=== PATIENT | male | born 1995 | race Caucasian/White ===

== ENCOUNTER → 2018-07-05 | Outpatient (CLI) | payer BC ==
--- NOTE | 2018-07-05 16:05 | ECHO ---
[email or web address] [address] [address] Main: [phone] Fax: Transthoracic Echocardiogram Name: AUGUST RUELAS MR#: [id number] Study Date: 07/05/2018 Study Time: 02:02 PM Date of : 1995 Age: 23 year(s) Height: 177.8 cm (70 in.) Weight: 77.11 kg (170 lb.) BSA: 1.95 m2 Gender: Male Examination: Echo Indication: Surgery clearance, DCCV, Atrial Fibrillation Image Quality: Contrast: Requested by: Vinh Pitts BP: / Heart Rate: Rhythm: Indication: Surgery clearance, DCCV, Atrial Fibrillation Procedure Staff Event Coordinator: Ly Fairchild [facility] Reading Physician: Jerome Champagne MD Requesting Provider: Conclusions: Normal size left ventricle. No LV hypertrophy. Normal global systolic LV function. The ejection fraction is estimated to be 65 %. Mildly dilated right ventricle. The mitral valve leaflets appear redundant. Trivial to mild mitral regurgitation. The aortic valve is normal in appearance and function. The pulmonary artery pressure is normal. No old studies for comparison. Measurements: Chambers Valvular Assessment AV/MV Valvular Assessment TV/PV Normal Normal Normal Name Value Range Name Value Range Name Value Range Ao Ora (MM): 3.3 cm (2.2 cm-3.7 AV Vmax: 1.47 m/s (1 m/s-1.7 TR Vmax: 2.55 mm/s ( - ) cm) m/s) TR PGmax: 26 mmHg ( - ) IVSd (2D): 0.7 cm (0.6 cm-1.1 AV meanP mmHg ( - ) syst. PAP: 31 mmHg ( - ) cm) MV E Vmax: 0.77 m/s ( - ) LVDd (2D): 5.0 cm (4.2 cm-5.9 MV A Vmax: 0.44 m/s ( - ) cm) MV E/A: 1.75 ( - ) LVDs (2D): 3.1 cm (2.1 cm-4 cm) LVPWd (2D): 1.0 cm (0.6 cm-1 cm) LVEF (BP): 72 % (>=55 %) EF Range: 65 % Continued Measurements: Chambers Valvular Assessment AV/MV Valvular Assessment TV/PV Patient: AUGUST RUELAS Study Date: 07/05/2018 Page 1 of 2 02:02 PM Name Value Name Value Name Value LADs: 3.8 cm MV E' Septal: 0.13 m/s CVP (est.): 5 mmHg LADs Lon.4 cm MV E/E' Septal: 5.80 LA Area: 22.9 cm2 MV E/E' Lateral: 5.50 LA Volume: 63 ml LA Volume Index: 32.3 ml/m2 Additional Vessels Name Value Ao Ascendin.7 cm Findings: Left Ventricle: Normal size left ventricle. No LV hypertrophy. Normal global systolic LV function. The ejection fraction is estimated to be 65 %. No regional wall motion abnormality. Normal diastolic LV function. Right Ventricle: Mildly dilated right ventricle. Left Atrium: The left atrium is normal in size. Right Atrium: The right atrium is normal in size. Mitral Valve: The mitral valve leaflets appear redundant. Trivial to mild mitral regurgitation. Aortic Valve: The aortic valve is normal in appearance and function. The aortic valve is tri-leaflet. Tricuspid Valve: The tricuspid valve is normal in appearance and function. Mild tricuspid regurgitation is present. The pulmonary artery pressure is normal. Pulmonic Valve: The pulmonic valve is normal in appearance and function. Aorta: The aorta is normal. Pericardium: No pericardial effusion. (No Signature Object) Patient: AUGUST RUELAS Study Date: 07/05/2018 Page 2 of 2 02:02 PM [id number]
== END ==
LOC: FCP 13:48
PROVIDERS: ATTEND Internal Medicine Cardiovascular Disease
DX: I48.91 Unspecified atrial fibrillation (principal); I51.7 Cardiomegaly